=== PATIENT | male | born 2000 | race Caucasian/White ===

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

== ENCOUNTER 2020-07-09 14:09 | Emergency (ER) | payer MEDICAID ==
[~2020-07-09] VITALS: Ht 177.8 cm; Wt 72.7 kg
[2020-07-09 14:35] VITALS: TEMP 98.3
[2020-07-09 14:55] VITALS: BP 120/78; PULSE 90
== END 2020-07-09 14:55 | disposition home or self-care (01) ==
LOC: COL.ER 14:09
DX: Z20.828 Contact with and (suspected) exposure to other viral communicable diseases (principal)

== ENCOUNTER 2020-10-10 17:14 | Emergency (ER) | payer SELFPAY ==
[~2020-10-10] VITALS: Ht 177.8 cm; Wt 70.5 kg
[2020-10-10 17:15] VITALS: TEMP 98.3
[2020-10-10] MEDS ORDERED: CEPHALEXIN500 M1 PO (18:49)
[2020-10-10 19:05] VITALS: BP 118/84; PULSE 73
== END 2020-10-10 19:05 | disposition home or self-care (01) ==
LOC: COL.ER 17:14
DX: S06.0X1A Concussion with loss of consciousness of 30 minutes or less, initial encounter (principal); S01.01XA Laceration without foreign body of scalp, initial encounter; Y04.8XXA Assault by other bodily force, initial encounter

== ENCOUNTER → 2020-10-27 | Outpatient (CLI) | payer MEDICAID ==
[~2020-10-27] MED LIST changes: +CEPHALEXIN500 M1 PO
[2020-10-27 14:46] VITALS: BP 121/76; PULSE 58; TEMP 97.8
== END ==
LOC: COL.ER 14:29
DX: Z48.02 Encounter for removal of sutures (principal)

== ENCOUNTER 2023-02-01 01:50 | Emergency (ER) | payer OTHER ==
[~2023-02-01] VITALS: Ht 180.3 cm; Wt 93.2 kg
[~2023-02-01 01:50] MED LIST changes: +BACTRIM DS 8001 TAB PO
[2023-02-01 01:54] VITALS: TEMP 97.9
[2023-02-01 02:34] LABS: BASO # 0.1 K/mm3 (0.0-0.2); EOS # 0.3 K/mm3 (0.0-0.7); EOS % 2.3 % (0.0-4.0); GRAN # 6.8 K/mm3 (1.4-6.5); GRAN % 60.8 % (42.2-75.2); HEMATOCRIT 38.1 % (42.0-52.0); HEMOGLOBIN 13.1 g/dl (13.5-18.0); LYMPH # 3.2 K/mm3 (1.2-3.4); LYMPH % 28.5 % (20.0-51.0); MEAN CELL VOLUME 87 fl (80.0-100.0); MEAN CORPUSCULAR HEMOGLOBIN 30 pg (27-31); MEAN CORPUSCULAR HGB CONC 34 g/dl (33.0-37.0); MEAN PLATELET VOLUME 10.7 fl (7.4-10.4); MONO # 0.8 K/mm3 (0.1-0.6); PLATELET COUNT 291 K/mm3 (130-400); RED BLOOD COUNT 4.37 M/mm3 (4.20-5.60); REDCELL DISTRIBUTION WIDTH-CV 13.5 % (11.5-14.5)
[2023-02-01 02:54] LABS: ALBUMIN 4.6 gm/dL (3.5-5.0); BILIRUBIN,TOTAL 0.2 mg/dL (0.2-1.2); C-REACTIVE PROTEIN 0.26 mg/dL (0.00-0.50); CALCIUM 9.5 mg/dL (8.4-10.2); CREATININE, serum 0.88 mg/dL (0.72-1.25); TOTAL PROTEIN 8.1 gm/dL (6.2-8.1)
[2023-02-01 03:19] LABS: COLLECTION METHOD CLEAN CATCH
[2023-02-01 03:21] LABS: URINE APPEARANCE Clear (CLEAR/HAZY); URINE COLOR Yellow (YELLOW)
[2023-02-01 03:22] LABS: URINE BLOOD Negative (NEGATIVE); URINE GLUCOSE Negative (NEGATIVE); URINE KETONE Negative (NEGATIVE); URINE NITRATE Negative (NEGATIVE); URINE PROTEIN(semi-quant) Negative (NEGATIVE); URINE UROBILINOGEN 0.2 E.U/dL (0.2-1.0)
[2023-02-01 03:23] LABS: MUCOUS Present (NOT PRESENT); SQUAMOUS EPITHELIAL None Seen /hpf (0-10); URINE BACTERIA None Seen /hpf (NONE SEEN); URINE RBC 0-2 /hpf (0-2)
[2023-02-01 05:52] VITALS: BP 114/78; PULSE 76
== END 2023-02-01 05:52 ==
LOC: COL.ER 01:50
PROVIDERS: Nurse Practitioner
DX: K62.5 Hemorrhage of anus and rectum (principal); H66.92 Otitis media, unspecified, left ear; F17.290 Nicotine dependence, other tobacco product, uncomplicated; F17.210 Nicotine dependence, cigarettes, uncomplicated; Z28.310 Unvaccinated for COVID-19
CPT/HCPCS: Q9967